=== PATIENT | female | born 1975 | race Caucasian/White ===

== ENCOUNTER 2025-08-24 18:48 | Emergency (ER) | payer SELFPAY ==
[~2025-08-24] VITALS: Ht 165.1 cm; Wt 72.0 kg
--- NOTE | 2025-08-24 19:30 | Physician Documentation ---
History of Present Illness ~ Chief Complaint: Mental Health Eval Stated Complaint: SI Time Seen by MD: 19:30 HPI 49-year-old female who presents with suicidal ideation She tells me that she is feeling like she wants to kill herself. She tells me that she recently was visiting her daughter in [place] and then was driving home back to [place]. While she was driving she was thinking about driving off a [place] and killing herself. She does admit to drinking alcohol today, states she is a daily drinker. She does withdraw if she stops drinking. She denies any actual self-harm today. She denies any physical self-harm or overdose attempt. No other acute medical problems except for chronic alcohol abuse and a hiatal hernia. She is not on medications. No history of suicide attempt in the past. Medication Reconciliation Allergies: Coded Allergies: No Known Allergies (Unverified , 08/24/25) Miscellaneous Medications Home Med List (No Home Medications), (Reported) Review of Systems Constitutional: Denies: fever Psychiatric: Reports: suicidal Physical Exam Vital Signs: Temperature: 97.7, Source: Temporal, Heart Rate: 107, Respiratory Rate: 18, BP: 142/89, Pulse Oximetry: 97, Weight: 72.000 Oxygen Flow Rate: 0 Physical Exam General: This is an anxious appearing middle-aged woman, very talkative HEENT: Atraumatic, oropharynx is moist Heart: Mild tachycardic, appears regular Lungs: normal work of breathing, normal oxygen saturation on room air Neuro: Alert and oriented Psychiatric: Slurred speech, labile affect, appears likely clinically intoxicated. She does endorse suicidal ideation in a specific plan of self- harm. Progress Results/Orders Results/Orders Completed Orders - BARBARA ELLIS MD Ethanol (08/25/25 06:11) Lorazepam Tablet (Ativan Tablet) (08/25/25 07:00) Medications Received in ER Medications (Trade) Dose Ordered Sig/Amanda Route PRN Reason Start Time Stop Time Status Last Admin Dose Admin (Ativan tablet) 2 mg ONCE ONCE PO 08/25/25 07:00 08/25/25 07:01 DC 08/25/25 07:06 1 MG Vital Signs 08/24/25 08/24/25 08/25/25 08/25/25 18:58 21:16 05:30 06:29 Temp 97.7 98.6 98.2 Pulse 107 99 80 Resp 18 20 16 18 B/P (MAP) 142/89 140/82 (101) 132/80 (97) Pulse Ox 97 99 99 O2 Flow Rate 0 08/25/25 07:06 Resp 16 Laboratory Tests Test 08/24/25 19:43 08/24/25 19:58 08/25/25 01:51 08/25/25 07:07 SARS-CoV-2 Antigen (Rapid) Negative White Blood Count 10.2 Red Blood Count 4.97 Hemoglobin 14.6 Hematocrit 43.9 Mean Corpuscular Volume 88.3 Mean Corpuscular Hemoglobin 29.4 Mean Corpuscular Hemoglobin Concent 33.3 Red Cell Distribution Width 14.4 Platelet Count 466 H Mean Platelet Volume 7.7 Neutrophils (%) (Auto) 69.5 Lymphocytes (%) (Auto) 24.4 Monocytes (%) (Auto) 4.7 Eosinophils (%) (Auto) 0.6 Basophils (%) (Auto) 0.8 Neutrophils # (Auto) 7.1 Lymphocytes # (Auto) 2.5 Monocytes # (Auto) 0.5 Eosinophils # (Auto) 0.1 Basophils # (Auto) 0.1 CBC Comment Differential Total Cells Counted 100 Neutrophils % (Manual) 73.0 Lymphocytes % (Manual) 20.0 L Monocytes % (Manual) 6.0 Eosinophils % (Manual) 1.0 Platelet Estimate Increased Red Blood Cell Morphology Normal Basophilic Stippling Sodium Level 140 Potassium Level 3.7 Chloride Level 106 Carbon Dioxide Level 27.3 Anion Gap 7 L Blood Urea Nitrogen 9 Creatinine 0.99 H Estimated GFR/1.73 m2 59 BUN/Creatinine Ratio 9.1 L Glucose Level 133 H Calcium Level 8.4 L Albumin 3.9 Thyroid Stimulating Hormone (TSH) 2.16 Chemistry Comments Ethyl Alcohol Level 233 H 14 H Urine Specimen Description Cln catch midstream Urine Color Yellow Urine Clarity Clear Urine pH 6.5 Urine Specific [place] 1.010 Urine Protein Negative Urine Glucose (UA) Negative Urine Ketones Negative Urine Occult Blood Trace-intact Urine Nitrite Negative Urine Bilirubin Negative Urine Urobilinogen 0.2 Urine Leukocyte Esterase Negative Urine RBC None seen Urine WBC None seen Urine Squamous Epithelial Cells Few Urine Bacteria None seen Volume Urine Centrifuged 10 ml Urine HCG, Qualitative Negative Urine Comment Urine Opiates Screen Negative Urine Methadone Screen Negative Urine Fentanyl Screen Negative Urine Barbiturates Screen Negative Urine Phencyclidine Screen Negative Urine Amphetamines Screen Negative Urine Benzodiazepines Screen Negative Urine Cocaine Screen Negative Urine Cannabinoids Screen Negative Drug Screen Comment Consults/PCP Consults/PCP : Additional Comment Mental health team consulted for evaluation Medical Decision Making Additional information obtaine: N/A Findings na Differential Dx:Considerations: Include: Alcohol abuse, Anxiety, Depression, Suicidal Assessment The patient presents with suicidal ideation with a specific plan, in the setting of alcohol intoxication. She is placed on a 1799 hold. She has no evidence of physical self-harm or overdose. No evidence of an acute medical or surgical emergency. Mental screening labs are unremarkable except for alcohol level is elevated as expected. She is medically cleared for mental health evaluation. I took over care of this patient for my shift. Patient is on a mental health hold. No acute events during my shift. Departure Impression: Primary Impression: Suicidal ideation Additional Impression: Alcoholic intoxication Additional Instructions: Transfer orders for [facility]: At this time there is no evidence of an emergent medical condition that would preclude (admission/transfer) to a psychiatric unit via [facility] protocol for further psychiatric, as well as medical evaluation and treatment. At this time I have no reason to believe that transfer via [facility] protocol would have serious medical compromise in the patient's health. Referrals: NO PRIMARY CARE PROVIDER (PCP) Signature Scribe Signature: na Attestation: JUAN Mccullough MD Aug 24, 2025 19:30 BARBARA ELLIS MD Aug 25, 2025 14:40
[2025-08-24 20:16] LABS: MEAN PLATELET VOLUME 7.7 FL (7.4-10.4)
[2025-08-24 20:18] LABS: RED CELL DISTRIBUTION WIDTH 14.4 % (11.5-14.5)
[2025-08-24 20:31] LABS: CREATININE 0.99 MG/DL (0.40-0.90); ETHANOL 233 MG/DL (<10); TOTAL CARBON DIOXIDE 27.3 MMOL/L (24-32); eCRCL 61 ML/MIN; eGFR 59 ML/MIN
[2025-08-24] MEDS ORDERED: NO HOME MEDS (21:20)
[2025-08-24 21:51] LABS: EOSINOPHILS % (MANUAL) 1.0 % (0-6); LYMPHOCYTES % (MANUAL) 20.0 % (21-51); MONOCYTES % (MANUAL) 6.0 % (2-12); NEUTROPHILS % (MANUAL) 73.0 % (42-75); PLATELET ESTIMATE INCREASED
[2025-08-25 02:23] LABS: URINE HCG NEGATIVE (NEG)
[2025-08-25 02:28] LABS: URINE AMPHETAMINE SCREEN NEGATIVE (Neg); URINE BARBITUATE SCREEN NEGATIVE (Neg); URINE BENZODIAZEPINES SCREEN NEGATIVE (Neg); URINE CANNABINOID SCREEN NEGATIVE (Neg); URINE COCAINE SCREEN NEGATIVE (Neg); URINE METHADONE SCREEN NEGATIVE (Neg); URINE OPIATE SCREEN NEGATIVE (Neg); URINE PHENCYCLIDINE SCREEN NEGATIVE (Neg)
[2025-08-25 02:45] LABS: LEUKOCYTE ESTERASE ,URINE NEGATIVE (Neg); NITRITES, URINE NEGATIVE (Neg); OCCULT BLOOD,URINE TRACE-INTACT (Neg)
[2025-08-25 02:46] LABS: UA COLLECTION TYPE CLN CATCH MIDSTREAM
[2025-08-25 02:58] LABS: SQUAMOUS EPITHELIAL CELL,UR FEW /LPF (FEW)
[2025-08-26 06:35] LABS: PRO BRAIN NATRIURETIC PEPTIDE < 30 PG/ML (0-125)
[2025-08-26 12:34] VITALS: BP 141/90; PULSE 88; RESP 16; TEMP 98.2; O2SAT 97
== END 2025-08-26 12:46 | disposition home or self-care (01) ==
LOC: ER 18:49
DX: R45.851 Suicidal ideations (principal); F10.229 Alcohol dependence with intoxication, unspecified; Z20.822 Contact with and (suspected) exposure to COVID-19; Y90.7 Blood alcohol level of 200-239 mg/100 ml
CPT/HCPCS: 36415; 80048; 80076; 80305; 80320; 81001; 81025; 83880; 84443; 85007; 85025; 87811; 99285; Q0177